=== PATIENT | female | born 1965 | race Caucasian/White ===

== ENCOUNTER → 2022-11-03 09:20 | Outpatient (BNVA) | payer OTHER, SELFPAY | PROVIDERS: Referring Provider Nurse Practitioner; Visit Provider Dermatology | DX: L82.1 Other seborrheic keratosis; D18.01 Hemangioma of skin and subcutaneous tissue; L73.8 Other specified follicular disorders; D23.5 Other benign neoplasm of skin of trunk; D23.4 Other benign neoplasm of skin of scalp and neck | CPT/HCPCS: 11102; 11103; 99203 ==

== ENCOUNTER 2022-11-13 11:05 | Outpatient (CLI) | payer OTHER, SELFPAY ==
--- NOTE | 2022-11-13 11:16 | MM_ITS ---
WS: [id number] Bilateral screening 3D tomosynthesis digital mammogram, 11/13/2022 Clinical Data: SCREENING Comparison: None. Findings: The breast parenchymal pattern shows fibroglandular tissue. No spiculated masses or clustered calcifi cations are seen. There are no secondary signs of carcinoma. MM/[id number] Impression: 1. Negative bilateral mammogram with no prior exam for review. 2. Recommend annual screening mammograms. BIRADS: 1-Negative FOLLOW UP: 1 Year Follow-up The CAD relay checker was used.
== END 2022-11-13 11:06 | disposition home or self-care (01) ==
PROVIDERS: PCP Family Medicine; Visit Provider Family Medicine
DX: Z12.31 Encounter for screening mammogram for malignant neoplasm of breast (principal)
CPT/HCPCS: 77063; 77067

== ENCOUNTER → 2023-02-01 08:56 | Outpatient (BNVA) | payer OTHER, SELFPAY | PROVIDERS: PCP Family Medicine; Referring Provider Nurse Practitioner; Visit Provider Specialist | DX: G43.711 Chronic migraine without aura, intractable, with status migrainosus (principal) | CPT/HCPCS: 99204 ==

== ENCOUNTER 2023-12-08 10:27 | Outpatient (CLI) | payer OTHER, SELFPAY ==
--- NOTE | 2023-12-08 10:32 | MM_ITS ---
WS: [id number] BILATERAL SCREENING DIGITAL TOMOSYNTHESIS MAMMOGRAM WITH CAD HISTORY: SCREENING COMPARISON: 11/13/2022 Bilateral CC and MLO views with tomosynthesis and synthetic mammography submitted. Computer aided det ection analyzed. Breast composition: There are scattered areas of fibroglandular density. No suspicious masses, microc alcifications or architectural distortion. Benign intramammary lymph nodes within each breast. MM/[id number] IMPRESSION: BI-RADS: 2-Benign FOLLOW UP: 1 Year Follow-up
== END 2023-12-08 10:28 | disposition home or self-care (01) ==
LOC: RAD 10:27
PROVIDERS: PCP Family Medicine; Visit Provider Nurse Practitioner
DX: Z12.31 Encounter for screening mammogram for malignant neoplasm of breast (principal)
CPT/HCPCS: 77063; 77067

== ENCOUNTER → 2024-01-11 11:06 | Outpatient (BNVA) | payer OTHER, SELFPAY | PROVIDERS: PCP Family Medicine; Visit Provider Nurse Practitioner | DX: M25.561 Pain in right knee | CPT/HCPCS: 73560; 73565; 99204 ==

== ENCOUNTER → 2024-01-26 13:01 | Outpatient (BNVA) | payer OTHER, SELFPAY | PROVIDERS: PCP Nurse Practitioner; Referring Provider Nurse Practitioner; Visit Provider Surgery | DX: Z12.11 Encounter for screening for malignant neoplasm of colon (principal) | CPT/HCPCS: 99203 ==

== ENCOUNTER 2024-01-27 06:00 | Outpatient (RCR) | payer OTHER, SELFPAY | END 2024-02-16 23:59 | disposition home or self-care (01) | LOC: SPT 06:00 | PROVIDERS: PCP Nurse Practitioner; Visit Provider Nurse Practitioner | DX: M25.561 Pain in right knee (principal); R53.1 Weakness | CPT/HCPCS: 97110; 97140; 97163 ==

== ENCOUNTER → 2024-02-02 12:45 | Outpatient (BNVA) | payer OTHER, SELFPAY | PROVIDERS: PCP Nurse Practitioner; Visit Provider Specialist | DX: G43.711 Chronic migraine without aura, intractable, with status migrainosus (principal); R03.0 Elevated blood-pressure reading, without diagnosis of hypertension | CPT/HCPCS: 99213 ==

== ENCOUNTER → 2024-02-14 10:00 | Outpatient (BNVA) | payer OTHER, SELFPAY | PROVIDERS: PCP Nurse Practitioner; Referring Provider Nurse Practitioner; Visit Provider Nurse Practitioner | DX: M25.511 Pain in right shoulder (principal); G89.29 Other chronic pain; R29.898 Other symptoms and signs involving the musculoskeletal system | CPT/HCPCS: 73030; 99214 ==

== ENCOUNTER 2024-02-17 06:00 | Outpatient (RCR) | payer OTHER, SELFPAY | END 2024-03-18 23:59 | disposition home or self-care (01) | LOC: SPT 06:00 | PROVIDERS: PCP Nurse Practitioner; Visit Provider Nurse Practitioner | DX: M25.561 Pain in right knee (principal); R53.1 Weakness | CPT/HCPCS: 97110; 97140 ==

== ENCOUNTER 2024-02-22 07:53 | Day surgery (SDC) | payer OTHER, SELFPAY ==
--- NOTE | 2024-02-22 08:05 | P.HPUD_ITS ---
Surgery/Procedure H&P Update DATE OF PROCEDURE: February 22, 2024 DATE H&P PERFORMED: 02/02/24 H&P UPDATE INFORMATION: I have reviewed H&P completed within last 30 days, I have examined patient prior to procedure, No changes to prior documentation and H&P is in [facility] EMR on date indicated PLANNED PROCEDURE: Operation Date: 02/22/24 10:00 Proposed Procedures p Colonoscopy 81332, G0121, Z12.11(Not Applicable) - Lenny Kate MD
--- NOTE | 2024-02-22 08:05 | W.PM.OPSUD ---
Surgery/Procedure H&P Update DATE OF PROCEDURE: February 22, 2024 DATE H&P PERFORMED: 02/02/24 H&P UPDATE INFORMATION: I have reviewed H&P completed within last 30 days, I have examined patient prior to procedure, No changes to prior documentation and H&P is in [facility] EMR on date indicated PLANNED PROCEDURE: Operation Date: 02/22/24 10:00 Proposed Procedures p Colonoscopy 90630, G0121, Z12.11(Not Applicable) - Lenny Kate MD
[2024-02-22 08:19] VITALS: BMI 48.3
[2024-02-22] MEDS: sodium chloride 0.9% 1,000 ML 30 ML IV (08:19)
[2024-02-22 08:24] VITALS: BP 164/109; PULSE 96; RESP 18; TEMP 36.2; O2SAT 97
--- NOTE | 2024-02-22 09:30 | P.ANESASSM_ITS ---
Pre-Anesthetic Assessment Height/Weight: Height 1.6 m Weight 123.831 kg Temp Pulse Resp BP Pulse Ox 97.2 F L 96 18 164/109 97 02/22/24 08:24 02/22/24 08:24 02/22/24 08:24 02/22/24 08:24 02/22/24 08:24 Preop Diagnosis: Screening Operation Date: 02/22/24 10:00 Proposed Procedures p Colonoscopy 66688, G0121, Z12.11(Not Applicable) - Lenny Kate MD Was Beta Tejas taken within 24 hours: N/A Was Clonidine taken within 24 hours: N/A Last intake: Intake Last Liquid Date 02/21/24 Last Liquid Time 23:30 Last Solid Date 02/20/24 Social Tobacco Exam alert, oriented x 3, clear to auscultation bilaterally and regular rate & rhythm Airway Submandibular: within normal limits Cervical ROM: within normal limits Mallampati: Class II Dentition: full History/ROS No significant history except as noted and No significant complaints Pulmonary None reported CV/HEM None reported None reported Hepatic None reported GI None reported Metabolic Morbid Ob[place] [facility] [place] None reported Neuropsych Migraine currently Anesthetic Plan ASA status: 2 Anesthesia: Anesthesia Evaluation and MAC Risk of > 500 ml blood loss (7ml/kg in children): No Medications/Allergies Home Medications Medication Instructions Recorded Confirmed Last Taken Type citalopram 20 mg tablet 20 mg PO DAILY 02/01/23 02/17/24 02/21/24 History cyanocobalamin (vitamin B-12) 1,000 mcg PO DAILY 02/01/23 02/17/24 02/21/24 History 1,000 mcg capsule furosemide 20 mg tablet 20 mg PO DAILY 02/01/23 02/17/24 02/21/24 History ibuprofen 800 mg tablet 800 mg PO Q8H 02/01/23 02/22/24 Unknown History levothyroxine 50 mcg capsule 50 mcg PO DAILY 02/01/23 02/17/24 02/21/24 History lidocaine 5 % topical patch 1 patch topical DAILY 02/01/23 02/22/24 Unknown History loratadine 10 mg tablet (Allergy 10 mg PO DAILY 02/01/23 02/17/24 02/21/24 Histo ry Relief (loratadine)) meclizine 25 mg tablet 25 mg PO BID PRN Pain (Scale Score 02/01/23 02/17/24 02/21/24 History 4-6) meloxicam 15 mg tablet 15 mg PO DAILY 02/01/23 02/22/24 02/21/24 History naloxone 4 mg/actuation nasal spray 4 mg intranasal Q2M PRN Drug 02/01/23 02/22/24 Unknown History Intoxication Symptoms pantoprazole 40 mg tablet,delayed 40 mg PO DAILY 02/01/23 02/17/24 02/21/24 History release tramadol 50 mg disintegrating 50 mg PO 02/01/23 02/14/24 02/21/24 History tablet bisacodyl 5 mg tablet,delayed 5 mg PO DAILY #4 tabs 01/26/24 02/22/24 02/21/24 Rx release (Dulcolax (bisacodyl)) bisacodyl 5 mg tablet,delayed 5 mg PO DAILY #4 tabs 01/26/24 02/22/24 02/21/24 Rx release (Dulcolax (bisacodyl)) magnesium citrate 300 ml PO DAILY PRN constipation 01/26/24 02/17/24 02/21/24 Rx #296 mL magnesium citrate 300 ml PO DAILY PRN constipation 01/26/24 02/17/24 02/21/24 Rx #296 mL erenumab-aooe 140 mg/mL 140 mg SUBCUT Q30D #1 mL 02/02/24 02/22/24 Unknown Rx subcutaneous auto-injector Allergies Allergy/AdvReac Type Severity Reaction Status Date / Time topiramate Allergy Intermediate kidney Verified 02/22/24 08:11 strawberry Allergy ALGY-Hives Verified 02/22/24 08:11 sumatriptan [From Imitrex] Allergy lock jaw Verified 02/22/24 08:11 Current Medications Generic Name Dose Route Start Last Admin Trade Name Freq PRN Reason Stop Dose Admin Sodium Chloride 1,000 mls @ 30 mls/hr 02/22/24 08:15 02/22/24 08:19 Sodium Chloride 0.9% IV 02/23/24 08:14 30 mls/hr .Q24H SHWETA Administration PFSH Anesthesia Medical History (Updated 02/15/24 @ 14:04 by ALONZO Win-BEKAH) Acromioclavicular joint pain Weakness of right shoulder Chronic right shoulder pain Right medial knee pain Social History Smoking and tobacco/nicotine status: current every day tobacco/nicotine user Data Anesthesia Cardiac Studies: No Data to Display
[2024-02-22 10:34] VITALS: BP 111/70; PULSE 76; RESP 18; TEMP 36.2; O2SAT 93
[2024-02-22 10:42] VITALS: BP 112/74; PULSE 74; RESP 18; TEMP 36.3; O2SAT 100
--- NOTE | 2024-02-22 15:13 | ANE.PACU2 ---
Inpatient post-anesthesia follow up: Airway intact: Yes Vital signs: Temperature 97.4 F Pulse Rate 74 Respiratory Rate 18 Blood Pressure 112/74 Pulse Oximetry 100 Oxygen Delivery Me thod Room Air Oxygen Flow Rate Fraction of Inspir ed Oxygen Hydration adequate: Yes Nausea and vomiting: No Pain level: 2 Mental status: Baseline
== END 2024-02-22 11:16 | disposition home or self-care (01) ==
PROVIDERS: PCP Nurse Practitioner; Visit Provider Surgery
PROC: 0DJD8ZZ Inspection of Lower Intestinal Tract, Via Natural or Artificial Opening Endoscopic (ICD-10-PCS; CPT 45378; principal; 2024-02-22 10:00)
DX: Z12.11 Encounter for screening for malignant neoplasm of colon (principal); D12.4 Benign neoplasm of descending colon; E66.01 Morbid (severe) obesity due to excess calories; Z68.42 Body mass index [BMI] 45.0-49.9, adult; F17.200 Nicotine dependence, unspecified, uncomplicated
CPT/HCPCS: 45380; 88305; J2704; J7030

== ENCOUNTER → 2024-03-15 10:23 | Outpatient (BNVA) | payer OTHER, SELFPAY | PROVIDERS: PCP Nurse Practitioner; Visit Provider Nurse Practitioner | DX: S83.206A Unspecified tear of unspecified meniscus, current injury, right knee, initial encounter (principal); X58.XXXA Exposure to other specified factors, initial encounter | CPT/HCPCS: 99214 ==

== ENCOUNTER → 2024-03-17 07:40 | Outpatient (BNVA) | payer OTHER, SELFPAY | PROVIDERS: PCP Nurse Practitioner; Visit Provider Surgery | DX: Z09 Encounter for follow-up examination after completed treatment for conditions other than malignant neoplasm (principal) | CPT/HCPCS: 99213 ==

== ENCOUNTER 2024-03-19 06:00 | Outpatient (RCR) | payer OTHER, SELFPAY | END 2024-04-17 23:59 | disposition home or self-care (01) | LOC: SPT 06:00 | PROVIDERS: PCP Nurse Practitioner; Visit Provider Nurse Practitioner | DX: M25.561 Pain in right knee (principal); R53.1 Weakness | CPT/HCPCS: 97110 ==

== ENCOUNTER → 2024-03-21 14:28 | Outpatient (CLI) | payer OTHER, SELFPAY ==
--- NOTE | 2024-03-21 15:15 | MR_ITS ---
WS: [id number] MRI RIGHT SHOULDER NONCONTRAST TECHNIQUE: Sagittal T2, coronal T1, T2 and proton density imaging. Axial gradient PDE imaging. CLINICAL INFORMATION: SHOULDER PAIN COMPARISON: None. FINDINGS: Mild degenerative arthritis AC joint. Tendinopathy distal supraspinatus with a tiny insertional tear. Otherwise normal distal supraspinatus and infraspinatus. Normal teres minor. Normal subscapularis. B iceps tendon appears intact in the bicipital groove. Intra-articular biceps tendon appears intact. Advanced degenerative narrowing of the glenohumeral articulation. Subchondral cystic change involving the glenoid with joint space narrowing and hypertrophic changes. Slight hypertrophic spurring along the humeral head and neck. Tiny amount of subcoracoid fluid. Visually small shoulder capsule. No othe r acute findings. MR/MR shoulder RT wo con* [id number] IMPRESSION: 1. Moderate joint arthritis at the AC joint. 2. Tendinopathy distal supraspinatus with a tiny insertional tear 3. Rotator cuff is otherwise normal. 4. Biceps tendon appears intact within the bicipital groove. Intra-articular b iceps tendon appears intact. 5. Advanced degenerative narrowing of the glenohumeral articulation with subch ondral cystic changes involving the glenoid appears advanced for patient's age. Degenerative fraying of the glenoid labrum. 6. Visually small shoulder capsule can be seen with adhesive capsulitis in the appropriate clinical setting.
== END ==
LOC: RAD 14:29
PROVIDERS: PCP Nurse Practitioner; Visit Provider Nurse Practitioner
DX: M19.011 Primary osteoarthritis, right shoulder (principal)
CPT/HCPCS: 73221

== ENCOUNTER 2024-04-18 06:00 | Outpatient (RCR) | payer OTHER, SELFPAY | END 2024-05-18 23:59 | disposition home or self-care (01) | LOC: SPT 06:00 | PROVIDERS: PCP Nurse Practitioner; Visit Provider Nurse Practitioner | DX: M25.561 Pain in right knee (principal); R53.1 Weakness | CPT/HCPCS: 97110; 97164 ==

== ENCOUNTER → 2024-05-17 13:48 | Outpatient (BNVA) | payer OTHER, SELFPAY | PROVIDERS: PCP Nurse Practitioner; Visit Provider Nurse Practitioner | DX: M19.011 Primary osteoarthritis, right shoulder (principal); R29.898 Other symptoms and signs involving the musculoskeletal system; M67.911 Unspecified disorder of synovium and tendon, right shoulder; R03.0 Elevated blood-pressure reading, without diagnosis of hypertension | CPT/HCPCS: 36415; 80053; 81001; 85025; 99214 ==

== ENCOUNTER → 2024-05-19 09:54 | Outpatient (BNVA) | payer SELFPAY | PROVIDERS: PCP Nurse Practitioner; Visit Provider Family Medicine | DX: Z01.818 Encounter for other preprocedural examination (principal) | CPT/HCPCS: 81003 ==

== ENCOUNTER 2024-05-25 05:53 | Day surgery (SDC) | payer OTHER, SELFPAY ==
[2024-05-25] VITALS (14 sets, daily range): BP systolic 139–211; BP diastolic 78–146; PULSE 71–92; RESP 15–18; TEMP 36.4–36.6; O2SAT 92–98; BMI 49.6
[2024-05-25] MEDS: acetaminophen 1,000 MG/100 ML PIGGYBACK 400 MG IV (06:36)
[2024-05-25] MEDS: CELEcoxib 200 mg Capsule 400 MG PO (06:37)
[2024-05-25] MEDS: gabapentin 300 mg Capsule PO (06:38)
--- NOTE | 2024-05-25 06:51 | P.ANESASSM_ITS ---
Pre-Anesthetic Assessment Height/Weight: Height 1.6 m Weight 127.006 kg Temp Pulse Resp BP Pulse Ox O2 Del Method 97.8 F 89 18 139/101 98 Room Air 05/25/24 06:09 05/25/24 06:09 05/25/24 06:09 05/25/24 06:09 05/25/24 06:09 05/25/24 06:17 Operation Date: 05/25/24 07:00 Proposed Procedures p Acromioplasty(Right) - Carmela Castorena MD s Rotator Cuff Repair - Open(Right) - Carmela Castorena MD s Distal Clavicle Resection(Right) - Carmela Castorena MD Familial anesthetic complications: None Was Beta Tejas taken within 24 hours: N/A Was Clonidine taken within 24 hours: N/A Last intake: Intake Last Liquid Date 05/25/24 Last Liquid Time 00:00 Last Solid Date 05/24/24 Last Solid Time 20:00 Social Tobacco and No alcohol Exam alert, oriented x 3, clear to auscultation bilaterally and regular rate & rhythm Airway Mallampati: Class III Dentition: full Pulmonary Sleep Apnea Metabolic Morbid Obesity and Thyroid [place] [facility] [place] Oste[place]/DJD Anesthetic Plan ASA status: 3 Anesthesia: General and Regional (specify below) Risk of > 500 ml blood loss (7ml/kg in children): No Medications/Allergies Home Medications Medication Instructions Recorded Confirmed Last Taken Type citalopram 20 mg tablet 40 mg PO DAILY 02/01/23 05/24/24 05/24/24 History cyanocobalamin (vitamin B-12) 1,000 mcg PO DAILY 02/01/23 05/24/24 05/24/24 History 1,000 mcg capsule ibuprofen 800 mg tablet 800 mg PO Q8H 02/01/23 05/24/24 Unknown History levothyroxine 50 mcg capsule 50 mcg PO DAILY 02/01/23 05/24/24 05/24/24 History lidocaine 5 % topical patch 1 patch topical DAILY 02/01/23 05/24/24 Unknown History loratadine 10 mg tablet (Allergy 10 mg PO DAILY 02/01/23 05/24/24 05/24/24 History Relief (loratadine)) meclizine 25 mg tablet 25 mg PO BID PRN Pain (Scale Score 02/01/23 05/24/24 05/24/24 History 4-6) meloxicam 15 mg tablet 15 mg PO DAILY 02/01/23 05/24/24 05/18/24 History naloxone 4 mg/actuation nasal spray 4 mg intranasal Q2M PRN Drug 02/01/23 05/24/24 Unknown History Intoxication Symptoms tramadol 50 mg disintegrating 50 mg PO 02/01/23 05/19/24 05/24/24 History tablet erenumab-aooe 140 mg/mL 140 mg SUBCUT Q30D #1 mL 02/02/24 05/24/24 Unknown Rx subcutaneous auto-injector sulfamethoxazole 800 1 tab PO BID 3 days #6 tabs 05/22/24 05/24/24 05/24/24 Rx mg-trimethoprim 160 mg tablet (Bactrim DS) cyclobenzaprine 10 mg PO 1XD 05/24/24 05/24/24 05/24/24 History Allergies Allergy/AdvReac Type Severity Reaction Status Date / Time topiramate Allergy Intermediate kidney Verified 05/19/24 10:01 strawberry Allergy ALGY-Hives Verified 05/19/24 10:01 sumatriptan [From Imitrex] Allergy lock jaw Verified 05/19/24 10:01 [facility] Anesthesia Medical History Nadja sign present in right knee Acromioclavicular joint pain Weakness of right shoulder Chronic right shoulder pain Right medial knee pain Social History Smoking and tobacco/nicotine status: never used tobacco/nicotine Data Anesthesia Cardiac Studies: No Data to Display
--- NOTE | 2024-05-25 06:52 | ANES.PROC ---
Anesthesia Procedures Procedure/Date: 05/25/24 Nerve Block ^: Nerve Block 1: Main Anesthesia: general anesthesia Time Out Performed: Yes Consent: requested by attending/covering physician, from patient, from other, risks and benefits reviewed and patient agrees to proceed Nerve block location: interscalene (R) Anesthesia monitors applied: pulse oximetry, EKG, BP cuff and oxygen Nerve block position: semi sitting Anesthetic Used: ropivicaine 0.5% (20 ml) and with decadron (3 mg) Ultrasound used to: recognize landmarks, visualize and ID brachial plexus, in supraclavicular region and visualize and ID interscalene groove Nerve Stimulator Used?: No Interscalene/Femoral BLK: 2 stimuplex 22 g needle used for position and inplane approach, visualize local anesthetic spread and no vascular puncture identified Patient Tolerated Procedure: well Complications: none Additional Comments: patient experienced neck/cervical pain during head positioning due to disc disease per patient
[2024-05-25] MEDS: scopolamine 1.5 Patch 1 PATCH TRANSDERMA (06:53)
[2024-05-25] MEDS: sodium chloride 0.9% 1,000 ML 30 ML IV (06:54)
--- NOTE | 2024-05-25 07:01 | W.PM.OPSUD ---
Surgery/Procedure H&P Update DATE OF PROCEDURE: May 25, 2024 DATE H&P PERFORMED: 05/19/24 H&P UPDATE INFORMATION: I have reviewed H&P completed within last 30 days, I have examined patient prior to procedure, No changes to prior documentation and H&P is in [facility] EMR on date indicated PLANNED PROCEDURE: Operation Date: 05/25/24 07:00 Proposed Procedures p Acromioplasty(Right) - Carmela Castorena MD s Rotator Cuff Repair - Open(Right) - Carmela Castorena MD s Distal Clavicle Resection(Right) - Carmela Castorena MD Related Problem List Diagnoses (1) Primary osteoarthritis, right shoulder: (2) Arthritis of right acromioclavicular joint: (3) Tendinopathy of right rotator cuff:
[2024-05-25] MEDS: ceFAZolin 3,000 MG in sodium chloride 0.9% (plus) 100 ML 200 MG IV (07:05)
[2024-05-25] MEDS: ceFAZolin 1,000 mg SDV 1000 MG IRRIGATION (07:51)
--- NOTE | 2024-05-25 08:37 | P.OP_ITS ---
Operative Report Date of procedure: May 25, 2024 Pre-op diagnosis: Right shoulder impingement with acromioclavicular joint degenerative osteoarthritis and adhesive capsulitis Post-op diagnosis: Right shoulder impingement with acromioclavicular joint degenerative osteoarthritis and adhesive capsulitis Post-op findings: Significant degenerative osteoarthritis of the left acromioclavicular joint with impingement and irregularity of the supraspinatus tendon without jordan tear, adhesive capsulitis and bursitis Procedure done: Right shoulder acromioplasty with distal clavicle resection, bursectomy, and manipulation Implants: None Specimens removed/disposition: None Pathology: None Surgeon: Carmela Castorena MD General Clerk: Jodie Mancuso General Clerk: Who services were required for positioning, retraction, closure, and completion of the surgical procedure. Anesthesia: General (Intubated, ASA 3) Estimated blood loss (mL): 10 IV fluids (mL): 1,100 Urine output (mL): 0 (No Hensley) Complications: None Findings: See above Condition: stable Disposition: PACU (Then return to same-day surgery for discharge to home) Brief History: This 58-year-old woman presented to the clinic with complaints of right shoulder pain. MRI demonstrated moderate arthritis of the acromioclavicular joint as well as tendinopathy and a tiny distal insertional tear of the supraspinatus with an otherwise normal rotator cuff. She was also noted to have adhesive capsulitis. After discussion in the office, and failure of conservative measures, the patient wished to proceed with operative intervention. While in the office, consents were signed. Questions were answered at that time, and the patient was scheduled for surgery. Procedure: The patient was brought to the operating theater and underwent general intubated, ASA 3, anesthesia. The patient was placed in a beachchair position and subsequently the right upper extremity was prepped and draped in the usual fashion utilizing DuraPrep. The arm was draped free. A surgical pause was performed prior to commencement of the surgical procedure. At the time of the surgical pause, we confirmed the site and side of surgery as well as administration of appropriate preoperative antibiotics, Ancef 3 g. The patient's weight is 280 pounds requiring the higher dose of Ancef. MRI was also reviewed at that time. Following the surgical pause, the shoulder was manipulated secondary to the diagnosis of adhesive capsulitis. It was not noted to be particularly tight at the time of this manipulation. An incision was made at approximately the level of the distal clavicle extending across the anterolateral corner of the acromion and distally as necessary. Care was taken to avoid injury to the axillary nerve by limiting the distal extent of the incision. Dissection continued through skin and soft tissues using a scalpel. Hemostasis was obtained using electrocautery. Soft tissues were elevated off the acromion. An acromioplasty was then accomplished using a combination of a saw and a power rasp. With this, we were able to remove compression caused by the acromion. The rotator cuff was then evaluated to look for tears. There was noted to be significant irregularity of the distal portion of the supraspinatus tendon, but there was no jordan tear. There was also evidence of impingement. This was released with the above acromioplasty. The shoulder was placed through further range of motion to assure there was no further evidence of rotator cuff tear. The acromioclavicular joint was exposed. A saw was then used to resect the distal clavicle without difficulty. The undersurface of the clavicle was palpated and was slightly further debrided. A power rasp was used to further smooth the area. When this was felt to be adequately resected, the wound was irrigated. Attention was then directed to closure. The wound was irrigated and closure was accomplished with 0 Vicryl in the capsular tissues overlying the acromioclavicular joint area as well as over the acromion and down into the deltoid muscle. 3-0 Monocryl was used to close the subcutaneous tissues followed by 4-0 Monocryl subcuticular closure. This was followed by Dermabond, Steri-Strips, and OpSite. An ABD was placed in the axilla. The patient was placed in a sling and was returned to the recovery room in satisfactory condition. The patient will be discharged to home to follow-up with me in the office as scheduled. There were no complications and no specimens. Related Problem List Diagnoses (1) Arthritis of right acromioclavicular joint: (2) Tendinopathy of right rotator cuff: (3) Impingement of right shoulder:
[2024-05-25] MEDS: labetalol 5 mg/mL SDV 20mL 10 MG IVP (09:16)
[2024-05-25] MEDS: HYDROcodone-acetaminophen 5-325 mg Tablet 1 TAB PO (10:16)
--- NOTE | 2024-05-25 11:10 | ANE.PACU2 ---
Inpatient post-anesthesia follow up: Airway intact: Yes Vital signs: Temperature 97.5 F Pulse Rate 77 Respiratory Rate 17 Blood Pressure 146/92 Pulse Oximetry 94 Oxygen Delivery Me thod Room Air Oxygen Flow Rate 3 Fraction of Inspir ed Oxygen Hydration adequate: Yes Nausea and vomiting: No Pain level: 1 Mental status: Baseline
== END 2024-05-25 11:10 | disposition home or self-care (01) ==
PROVIDERS: PCP Nurse Practitioner; Visit Provider Specialist
PROC: (CPT 23130; principal; 2024-05-25 07:00)
PROC: (CPT 23120; 2024-05-25 07:00)
PROC: (CPT 29824; 2024-05-25 07:00)
DX: M19.011 Primary osteoarthritis, right shoulder (principal); M25.811 Other specified joint disorders, right shoulder; M75.01 Adhesive capsulitis of right shoulder; G47.30 Sleep apnea, unspecified; E66.01 Morbid (severe) obesity due to excess calories; Z68.42 Body mass index [BMI] 45.0-49.9, adult
CPT/HCPCS: 29824; 29826; J0131; J0690; J1100; J1171; J2405; J2704; J2795; J3010; J3490; J7030

== ENCOUNTER 2024-06-07 10:41 | Outpatient (CLI) | payer OTHER, SELFPAY ==
--- NOTE | 2024-06-07 11:00 | MR_ITS ---
WS: [id number] MRI RIGHT KNEE HISTORY: S83.206A - Unspecified tear of unspecified meniscus, curr... No injury. COMPARISON: Radiograph 01/11/2024 Anterior cruciate ligament: Intact. Posterior cruciate ligament: Intact. Medial collateral ligament: Intact. Posterior lateral corner structures: Intact. Medial menisci: Intact. Normal signal, size and shape. Lateral meniscus: Intact. Normal signal, size and shape. Extensor mechanism: Distal quadriceps tendon and patellar tendons are intact. Fluid and soft tissue: Moderate suprapatellar joint effusion. There is also small amount of edema ove r the lateral patellar retinaculum but there is no tear of the retinaculum. No Mullen's cyst. Osseous and articular structures: Patellofemoral compartment: Mild lateral subluxation of the patella.. Minimal intermediate signal in the lateral patellar facet from mild chondromalacia. No full-thickness defect. No marrow edema. Medial compartment: Mild narrowing of the medial compartment with mild diffuse loss of cartilage. The re is a more focal cartilage defect towards the posterior intercondylar notch. No marrow edema. Lateral compartment: Mild narrowing of the lateral compartment with mild diffuse chondromalacia. No m arrow edema. MR/MR knee RT wo con* [id number] IMPRESSION: 1. No ACL tear. 2. No meniscal tear identified. Mild surface fraying and fluid along the super ior articular surface of the posterior medial meniscus. There is a small cartil aginous defect adjacent to this fluid. 3. Moderate suprapatellar joint effusion. 4. Mild narrowing the medial and lateral compartments with mild chondromalacia . No marrow edema.
== END 2024-06-07 10:42 | disposition home or self-care (01) ==
LOC: RAD 10:41
PROVIDERS: PCP Nurse Practitioner; Visit Provider Nurse Practitioner
DX: M25.461 Effusion, right knee (principal)
CPT/HCPCS: 73721

== ENCOUNTER 2024-06-19 06:00 | Outpatient (RCR) | payer OTHER, SELFPAY | END 2024-07-18 23:59 | disposition home or self-care (01) | LOC: TPT 06:00 | PROVIDERS: Visit Provider Nurse Practitioner | DX: M19.011 Primary osteoarthritis, right shoulder (principal) | CPT/HCPCS: 97110; 97140; 97161 ==

== ENCOUNTER → 2024-06-26 11:30 | Outpatient (BNVA) | payer OTHER, SELFPAY | PROVIDERS: Visit Provider Nurse Practitioner | DX: S83.206A Unspecified tear of unspecified meniscus, current injury, right knee, initial encounter (principal); X58.XXXA Exposure to other specified factors, initial encounter | CPT/HCPCS: 36415; 80053; 81001; 85025 ==

== ENCOUNTER 2024-07-18 07:28 | Day surgery (SDC) | payer OTHER, SELFPAY ==
[2024-07-18] VITALS (14 sets, daily range): BP systolic 103–138; BP diastolic 67–88; PULSE 72–92; RESP 14–20; TEMP 36.3–36.9; O2SAT 90–98; BMI 50.1
[2024-07-18] MEDS: acetaminophen 1,000 MG/100 ML PIGGYBACK 400 MG IV (08:17)
[2024-07-18] MEDS: CELEcoxib 200 mg Capsule 400 MG PO (08:20)
[2024-07-18] MEDS: gabapentin 300 mg Capsule PO (08:21)
[2024-07-18] MEDS: sodium chloride 0.9% 1,000 ML 30 ML IV (08:26)
--- NOTE | 2024-07-18 08:53 | ANES.PREANE2 ---
Pre-Anesthetic Assessment Height/Weight: Height 1.6 m Weight 128.367 kg Temp Pulse Resp BP Pulse Ox O2 Del Method 97.6 F 88 18 138/81 98 Room Air 07/18/24 07:57 07/18/24 07:57 07/18/24 07:57 07/18/24 07:57 07/18/24 07:57 07/18/24 07:59 Operation Date: 07/18/24 09:30 Proposed Procedures p Knee Arthroscopy Knee Arthroscopy w/ Debridement(Right) - Carmela Castorena MD Familial anesthetic complications: None Was Beta Tejas taken within 24 hours: N/A Was Clonidine taken within 24 hours: N/A Last intake: Intake Last Liquid Date 07/17/24 Last Liquid Time 23:00 Last Solid Date 07/17/24 Last Solid Time 18:00 Social Tobacco and No alcohol Exam alert, oriented x 3, clear to auscultation bilaterally and regular rate & rhythm Airway Mallampati: Class III Dentition: full Pulmonary Sleep Apnea Metabolic Morbid Obesity and Thyroid Disease Anesthetic Plan ASA status: 3 Anesthesia: General Risk of > 500 ml blood loss (7ml/kg in children): No Medications/Allergies Home Medications Medication Instructions Recorded Confirmed Last Taken Type citalopram 20 mg tablet 40 mg PO DAILY 02/01/23 07/17/24 07/17/24 History cyanocobalamin (vitamin B-12) 1,000 mcg PO DAILY 02/01/23 07/17/24 07/17/24 History 1,000 mcg capsule ibuprofen 800 mg tablet 800 mg PO Q8H 02/01/23 07/17/24 Unknown History levothyroxine 50 mcg capsule 50 mcg PO DAILY 02/01/23 07/17/24 07/17/24 History lidocaine 5 % topical patch 1 patch topical DAILY 02/01/23 07/17/24 Unknown History loratadine 10 mg tablet (Allergy 10 mg PO DAILY 02/01/23 07/17/24 07/17/24 History Relief (loratadine)) meclizine 25 mg tablet 25 mg PO BID PRN Pain (Scale Score 02/01/23 07/17/24 05/24/24 History 4-6) meloxicam 15 mg tablet 15 mg PO DAILY 02/01/23 07/17/24 07/07/24 History naloxone 4 mg/actuation nasal spray 4 mg intranasal Q2M PRN Drug 02/01/23 07/17/24 Unknown History Intoxication Symptoms tramadol 50 mg disintegrating 50 mg PO PRN 02/01/23 07/17/24 07/17/24 History tablet erenumab-aooe 140 mg/mL 140 mg SUBCUT Q30D #1 mL 02/02/24 07/17/24 06/29/24 Rx subcutaneous auto-injector cyclobenzaprine 10 mg PO 1XD 05/24/24 07/17/24 07/17/24 History Allergies Allergy/AdvReac Type Severity Reaction Status Date / Time topiramate Allergy Intermediate kidney Verified 06/26/24 09:49 strawberry Allergy ALGY-Hives Verified 06/26/24 09:49 sumatriptan [From Imitrex] Allergy lock jaw Verified 06/26/24 09:49 Current Medications Generic Name Dose Route Start Last Admin Trade Name Freq PRN Reason Stop Dose Admin Sodium Chloride 1,000 mls @ 30 mls/hr 07/18/24 07:45 07/18/24 08:26 Sodium Chloride 0.9% IV 07/19/24 07:44 30 mls/hr .Q24H SHWETA Administration PFSH Anesthesia Medical History Nadja sign present in right knee Acromioclavicular joint pain Weakness of right shoulder Chronic right shoulder pain Right medial knee pain Social History Smoking and tobacco/nicotine status: never used tobacco/nicotine Data Anesthesia Cardiac Studies: No Data to Display
[2024-07-18] MEDS: ceFAZolin 3,000 MG in sodium chloride 0.9% (plus) 100 ML 200 MG IV (09:05)
[2024-07-18] MEDS: ROPivacaine 0.5% SDV 30 mL 150 MG INJECTION (10:01)
[2024-07-18] MEDS: morphine 4 mg/mL SDV 1 mL XX ×2 (10:01)
--- NOTE | 2024-07-18 10:53 | PM.OP ---
Operative Report Date of procedure: July 18, 2024 Pre-op diagnosis: Right knee primary osteoarthritis and recurrent knee instability with morbid obesity, BMI 50%+ Post-op diagnosis: Right knee primary osteoarthritis with medial and lateral meniscal tears, medial plica, and cartilage irregularity subpatellar on the trochlear groove with morbid obesity, BMI 50%+ Post-op findings: Tear in the mid body of the lateral meniscus, anterior and posterior horn tears of the medial meniscus, a medial plica, and a small cartilage bubble under the patella. Procedure done: Right arthroscopic knee surgery with partial medial and lateral meniscectomies, resection of medial plica, chondroplasty of medial femoral condyle and patella Implants: None Specimens removed/disposition: None Pathology: None Surgeon: Carmela Castorena MD Dental Technician Instructor: Jodie Mancuso, nurse practitioner, who services were required for positioning during the arthroscopic procedure due to the patient's BMI of 50% plus, maintenance of position of the leg for the procedure, closure, and completion of the surgical procedure. Anesthesia: General (Per LMA, ASA 3) Estimated blood loss (mL): 5 Tourniquet time (min): 39 (At 250 mmHg) IV fluids (mL): 700 Urine output (mL): 0 (No H[place]) Complications: None Findings: As noted above Condition: stable Disposition: PACU (Then return to same-day surgery for discharge to home) Brief History: This 58-year-old woman presents today for chronic instability in the right knee. MRI was clinical on findings, but the patient was unresponsive to conservative measures, and because of this, arthroscopic surgical intervention was offered to her. She wished to proceed with this arthroscopic intervention. MRI was reviewed prior to the surgical procedure. Risks and complications of the surgery were discussed with the patient. She wished to proceed. The morning of surgery further questions were answered and the patient again had consent reviewed with her. Procedure: Patient was brought to the operating theater and after undergoing adequate general anesthesia per LMA, ASA 3, the patient's right lower extremity was prepped and draped in usual fashion utilizing DuraPrep. A tourniquet was placed high on the leg prior to prepping and draping. The tourniquet was elevated prior to commencement of the surgical procedure to 250 mmHg. Total tourniquet time was 39 minutes. Elevation followed prepping and exsanguination. Prior to commencement of the surgical procedure, a surgical pause was performed. At the time of the surgical pause, we identified the site and side of surgery. We also confirmed the patient's identity and appropriate and timely administration of preoperative antibiotics, Ancef 3 g. Preoperative surgical markings were also visualized at this time. The patient's BMI is 50% plus, and therefore, surgical aides teacher was required to maintain the patient's leg in the safe position for the surgical procedure. Standard arthroscopic portals were utilized including superolateral, inferomedial, and inferolateral portals. The examination commenced in the suprapatellar pouch area where the patient was noted to have chondromalacia of the significant degree on the undersurface of the patella. There was also noted to be a medial plica and synovitis in this area. Additionally, there was a small bubble in the cartilage possibly contributing to the patient's instability. The arthroscope was then passed in the medial compartment where there was noted to be tearing in the anterior and posterior horn of the medial meniscus. There was also noted to be significant degenerative osteoarthritic change on the medial femoral condyle. The meniscus was addressed with a combination of the intra-articular shaver and the intra-articular heat wand. Debridement was accomplished both along the anterior aspect of the meniscus and also along the posterior horn. Heat wand was also used to perform chondroplasty on the medial femoral condyle. The arthroscope was then passed across the notch area where anterior cruciate ligament was visualized and found to be intact, but there was some synovitis around this area, and this was debrided with the intra-articular shaver. The scope was passed into the lateral compartment with the knee in a modified [id number] position due to the patient's size. Lateral meniscus was noted to have tearing along the inner rim which was degenerative in nature. This was addressed with the intra-articular shaver and also with the intra-articular heat wand. Once lateral meniscus had been thus prepared it was palpated and found to be intact and not displaceable into the knee joint. The arthroscope was then returned to the medial compartment where further evaluation of the medial meniscus demonstrated it was not displaceable into the joint. The arthroscope was then returned to the patellofemoral joint where a chondroplasty was performed of the undersurface of the patella. This chondroplasty involved use of the intra-articular shaver as well as the heat wand. Additionally, the shaver was used to debride the medial plica. The irregularity of the cartilage on the anterior surface of the trochlear groove under the patella was also addressed with the intra-articular shaver and subsequently the heat wand. Once the patella had been addressed, the scope was passed back through the knee compartments to evaluate for other abnormalities. Finding none, attention was directed to closure. The knee was copiously irrigated and suctioned dry. Following this, each portal was closed with a simple suture followed by Dermabond and Tegaderm. Additionally, the knee was injected with 20 mL of half percent ropivacaine and 8 mg of morphine. Additional 10 mL of ropivacaine was placed about the portals. Sterile dressing was placed consisting of the Tegaderm, Steri-Strips, and OpSite followed by the Ryan wrap. Patient was returned to Recovery Room in satisfactory condition where she will be discharged home to follow-up with me in the office as scheduled. There were no complications and no specimens. Related Problem List Diagnoses (1) Tear of medial meniscus of right knee: (2) Tear of lateral meniscus of right knee: (3) Primary osteoarthritis of right knee:
[2024-07-18] MEDS: HYDROcodone-acetaminophen 5-325 mg Tablet 1 TAB PO (11:55)
--- NOTE | 2024-07-18 13:15 | ANE.PACU2 ---
Inpatient post-anesthesia follow up: Airway intact: Yes Vital signs: Temperature 97.7 F Pulse Rate 78 Respiratory Rate 16 Blood Pressure 117/70 Pulse Oximetry 94 Oxygen Delivery Me thod Room Air Oxygen Flow Rate 2 Fraction of Inspir ed Oxygen Hydration adequate: Yes Nausea and vomiting: No Pain level: 1 Mental status: Baseline
== END 2024-07-18 13:15 | disposition home or self-care (01) ==
PROVIDERS: Visit Provider Specialist
PROC: (CPT 29870; principal; 2024-07-18 09:20)
DX: M17.11 Unilateral primary osteoarthritis, right knee (principal); M23.51 Chronic instability of knee, right knee; E66.01 Morbid (severe) obesity due to excess calories; Z68.43 Body mass index [BMI] 50.0-59.9, adult; G47.30 Sleep apnea, unspecified
CPT/HCPCS: 29880; J0131; J0690; J1100; J1171; J2270; J2405; J2704; J2795; J3010; J7030

== ENCOUNTER → 2024-08-07 09:31 | Outpatient (BNVA) | payer OTHER, SELFPAY | PROVIDERS: Visit Provider Nurse Practitioner | DX: Z98.890 Other specified postprocedural states (principal); M19.011 Primary osteoarthritis, right shoulder; M24.111 Other articular cartilage disorders, right shoulder | CPT/HCPCS: 99024 ==

== ENCOUNTER 2024-12-29 09:20 | Outpatient (CLI) | payer OTHER, SELFPAY ==
--- NOTE | 2024-12-29 09:26 | MM_ITS ---
WS: [id number] BILATERAL 3D TOMOSYNTHESIS DIGITAL SCREENING MAMMOGRAPHY WITH CAD CLINICAL INFORMATION: SCREEN HISTORY: Screening mammogram. No current complaints. COMPARISON: 2023 TECHNIQUE: Bilateral CC and MLO views. FINDINGS: Scattered fibroglandular densities bilaterally. No suspicious focal mass, asymmetry, calcifications, or architectural distortion. Similar-appearing incidental intramammary lymph nodes. Increasing nodular density near the 12 o'clock position RIGHT breast. Recommend RIGHT breast spot diagnostic mammograp hy and ultrasound. MM/MM [facility] tomosynthesis [id number] IMPRESSION: DENSITY: There are scattered areas of fibroglandular density. BI-RADS: 0 - Incomplete: Need additional imaging evaluation. FOLLOW UP: Need Additional Imaging Recommend RIGHT breast diagnostic mammography and ultrasound.
== END 2024-12-29 09:21 | disposition home or self-care (01) ==
PROVIDERS: PCP Nurse Practitioner; Visit Provider Nurse Practitioner
DX: Z12.31 Encounter for screening mammogram for malignant neoplasm of breast (principal); R92.8 Other abnormal and inconclusive findings on diagnostic imaging of breast; M17.11 Unilateral primary osteoarthritis, right knee; Z68.42 Body mass index [BMI] 45.0-49.9, adult; Z98.890 Other specified postprocedural states
CPT/HCPCS: 20610; 73560; 73565; 77063; 77067; 99214; J1100; J2795; J3301; J9999

== ENCOUNTER 2025-01-16 05:00 | Outpatient (RCR) | payer OTHER, SELFPAY | END 2025-02-15 23:59 | disposition home or self-care (01) | LOC: TPT 05:00 | PROVIDERS: PCP Nurse Practitioner; Visit Provider Nurse Practitioner | DX: Z98.890 Other specified postprocedural states (principal) | CPT/HCPCS: 97110; 97161 ==

== ENCOUNTER 2025-01-25 10:06 | Outpatient (CLI) | payer OTHER, SELFPAY ==
--- NOTE | 2025-01-25 10:19 | MM_ITS ---
WS: [id number] RIGHT 3D TOMOSYNTHESIS DIGITAL MAMMOGRAPHY WITH CAD CLINICAL INFORMATION: ABNORMAL MAMMOGRAM HISTORY: History of fibroadenomas. RIGHT breast additional views. COMPARISON: 12/29/2024 TECHNIQUE: 3 views of the right breast were obtained. FINDINGS: The right breast is composed of scattered fibroglandular densities. Again seen is dense nodular tissue near the 12 o'clock position RIGHT breast. This persists on spot compression views. 6 mm nodular density near the 10 to 11 o'clock position. Ultrasound described below. ULTRASOUND BREAST RIGHT TECHNIQUE: Ultrasound right breast focused area of concern. CLINICAL INFORMATION: ABNORMAL MAMMOGRAM FINDINGS: Ultrasound RIGHT breast 11 to 1 o'clock position. There is a small hypoechoic ovoid nodule with central fatty hilum measuring 4 x 6 mm at the 11 o'clock position 2 cm from the nipple compatible with an incidental intramammary lymph node. Dense underlying parenchymal tissue 11 to 1:00. No other suspicious findings. MM/MM diag [facility] tomosynthesis [id number] IMPRESSION: DENSITY: There are scattered areas of fibroglandular density. BI-RADS: 2 - Benign. FOLLOW UP: 1 Year Follow-up Recommend return to annual screening mammography.
== END 2025-01-25 10:07 | disposition home or self-care (01) ==
LOC: RAD 10:07
PROVIDERS: PCP Nurse Practitioner; Visit Provider Nurse Practitioner
DX: R92.8 Other abnormal and inconclusive findings on diagnostic imaging of breast (principal); R92.323 Mammographic fibroglandular density, bilateral breasts; N63.12 Unspecified lump in the right breast, upper inner quadrant
CPT/HCPCS: 76642; 77061; G0279

== ENCOUNTER → 2025-02-01 09:01 | Outpatient (BNVA) | payer OTHER, SELFPAY | PROVIDERS: PCP Nurse Practitioner; Visit Provider Specialist | DX: G43.711 Chronic migraine without aura, intractable, with status migrainosus (principal); R03.0 Elevated blood-pressure reading, without diagnosis of hypertension | CPT/HCPCS: 99214 ==

== ENCOUNTER 2025-02-15 09:48 | Outpatient (CLI) | payer OTHER, SELFPAY ==
--- NOTE | 2025-02-15 11:00 | MR_ITS ---
WS: [id number] MRI BRAIN WITHOUT CONTRAST HISTORY: R51.9 - Headache, unspecified COMPARISON: None available. TECHNIQUE: Diffusion imaging, multiplanar T1, T2 and FLAIR imaging obtained. No evidence for acute infarct or hemorrhage. [place]-white matter differentiation is normal. Normal hippocampal formations. No remote or acute infarcts are volume loss. Ventricles and extra-axial spaces are normal. No inferior displacement of cerebellar tonsils. The sella turcica and pituitary gland are unremarkable. Dural venous sinuses and [place] demonstrate no abnormality on this unenhanced studies. Paranasal sinuses: Clear. Mastoid air cells: Normal. Calvarium and scalp: Intact. MR/MR head wo con* [id number] IMPRESSION: 1. Unremarkable noncontrast MRI brain. 2. No prior infarct or signal abnormality.
--- NOTE | 2025-02-15 11:45 | MR_ITS ---
WS: [id number] MRA ANGIOGRAPHY [place] OF [place] HISTORY: R51.9 - Headache, unspecified COMPARISON: None available. TECHNIQUE: 3-D MR angiography is performed of the [place]. All images are reviewed including source images. Very small caliber but patent distal RIGHT vertebral artery. LEFT vertebral artery is dominant. Normal basilar artery. Normal posterior cerebral arteries. No aneurysms. Hypoplastic or absent RIGHT posterior communicating artery. Normal LEFT posterior communicating artery. Intracranial portion of the internal carotid arteries are normal course and caliber. No significant atherosclerosis, stenosis or aneurysm identified. Middle and anterior cerebral arteries are both patent with no significant disease. Anterior communicating artery is also normal. MR/MR angio head wo con [id number] IMPRESSION: 1. No occlusions or aneurysms in the [place]. 2. Small caliber distal RIGHT vertebral artery but it is patent. 3. No occlusions intracranial carotid arteries.
== END 2025-02-15 09:49 | disposition home or self-care (01) ==
LOC: RAD 09:49
PROVIDERS: PCP Nurse Practitioner; Visit Provider Specialist
DX: G43.711 Chronic migraine without aura, intractable, with status migrainosus (principal)
CPT/HCPCS: 70544; 70551

== ENCOUNTER 2025-02-16 05:00 | Outpatient (RCR) | payer OTHER, SELFPAY | END 2025-03-18 23:59 | disposition home or self-care (01) | LOC: TPT 05:00 | PROVIDERS: PCP Nurse Practitioner; Visit Provider Nurse Practitioner | DX: Z98.890 Other specified postprocedural states (principal) | CPT/HCPCS: 97110 ==

== ENCOUNTER 2025-03-19 05:00 | Outpatient (RCR) | payer OTHER, SELFPAY | END 2025-04-17 23:59 | disposition home or self-care (01) | LOC: TPT 05:00 | PROVIDERS: PCP Nurse Practitioner; Visit Provider Nurse Practitioner | DX: Z98.890 Other specified postprocedural states (principal) | CPT/HCPCS: 97110 ==

== ENCOUNTER → 2025-04-02 10:07 | Outpatient (BNVA) | payer OTHER, SELFPAY | PROVIDERS: PCP Nurse Practitioner; Visit Provider Nurse Practitioner | DX: M17.11 Unilateral primary osteoarthritis, right knee (principal); Z68.42 Body mass index [BMI] 45.0-49.9, adult; Z47.89 Encounter for other orthopedic aftercare | CPT/HCPCS: 20610; 99213; J1100; J2795; J3301; J9999 ==

== ENCOUNTER → 2025-07-06 09:14 | Outpatient (BNVA) | payer OTHER, SELFPAY | PROVIDERS: PCP Nurse Practitioner; Visit Provider Nurse Practitioner | DX: M17.11 Unilateral primary osteoarthritis, right knee (principal); Z68.42 Body mass index [BMI] 45.0-49.9, adult; Z98.890 Other specified postprocedural states | CPT/HCPCS: 99213 ==